=== PATIENT | male | born 1980 | race African-American/Black ===

== ENCOUNTER 2021-09-28 13:01 | Emergency (ER) | payer SELFPAY ==
[~2021-09-28] VITALS: Ht 185.4 cm; Wt 100.0 kg
[2021-09-28 13:24] VITALS: BP 130/99
[2021-09-28 15:23] LABS: CHLORIDE 109 mEq/L (98-107)
[2021-09-28 15:26] LABS: BASOPHILS % 0.6 % (0.0-2.0); EOSINOPHILS % 2.3 % (0.0-5.0); HEMATOCRIT. 40.7 % (42.0-52.0); HEMOGLOBIN. 14.3 g/dL (14.0-18.0); LYMPHOCYTES % 34.9 % (20.0-50.0); MEAN CORPUSCULAR HEMOGLOBIN 31.6 pg (28.0-32.0); MEAN CORPUSCULAR VOLUME 89.8 fL (80.0-94.0); MONOCYTES % 8.6 % (2.0-8.0); NEUTROPHILS % 53.6 % (40.0-76.0); PLATELET 308 x1000/uL (130-400); RED BLOOD CELL COUNT 4.53 mill/uL (4.7-6.1); RED CELL DISTRIBUTION WIDTH 13.6 % (11.6-14.6)
[2021-09-28] MEDS ORDERED: NAPR-681 PO (16:06)
== END 2021-09-28 16:14 | disposition home or self-care (01) ==
LOC: ER 13:01
DX: M54.41 Lumbago with sciatica, right side (principal); R20.2 Paresthesia of skin
CPT/HCPCS: 36415; 72100; 80048; 85025; 99284